=== PATIENT | female | born 1995 | race Caucasian/White ===

== ENCOUNTER 2017-04-04 20:10 | Emergency (ER) | payer OTHER ==
[~2017-04-04] VITALS: Ht 162.6 cm; Wt 49.9 kg
[2017-04-04 20:28] VITALS: BP 120/64
[2017-04-04] MEDS ORDERED: PRED20TA PO (20:47)
--- NOTE | 2017-04-04 20:47 | PHYS DOC ---
Past Medical History Past Medical History: Anxiety, Bipolar, Depression, Other Additional Past Medical Histor: born premature Past Surgical History: Appendectomy, Cholecystectomy, , Other Additional Past Surgical Histo: eye surgery Alcohol Use: None Drug Use: Marijuana Adult General Chief Complaint Chief Complaint: LOWER EXT PAIN [facility] HPI Patient is a 21 year old female presents emergency department stating that she has having left heel and foot pain. She states that she had injured her leg approximately 8 years ago and was seen at . She states that they told once the swelling goes down that everything she did look okay and she should be able to walk alright. Patient states within the last 3 days she's been having increased he'll pain and discomfort. She states that she has increased pain that goes up into her toes. She states that pain increases more after she's been on her feet for quite some time. Patient states that she has numbness in the fifth toe. She does have good cap refill less than 2 seconds. Pedal pulses 2 +. Patient states that she has not taken anything for the pain and discomfort. Review of Systems Review of Systems Constitutional: Denies fever or chills [] Eyes: Denies change in visual acuity, redness, or eye pain [] HENT: Denies nasal congestion or sore throat [] Respiratory: Denies cough or shortness of breath [] Cardiovascular: No additional information not addressed in HPI [] GI: Denies abdominal pain, nausea, vomiting, bloody stools or diarrhea [] : Denies dysuria or hematuria [] Musculoskeletal: Denies back pain or joint pain [] Integument: Denies rash or skin lesions [] Neurologic: Denies headache, focal weakness or sensory changes [] Endocrine: Denies polyuria or polydipsia [] Allergies Allergies Allergies Coded Allergies Type Severity Reaction Last Updated Verified ibuprofen Allergy Intermediate swelling 02/26/16 Yes aspirin Allergy Unknown swelling 02/26/16 Yes Physical Exam Physical Exam Constitutional: Well developed, well nourished, no acute distress, non-toxic appearance. [] HENT: Normocephalic, atraumatic, bilateral external ears normal, oropharynx moist, no oral exudates, nose normal. [] Eyes: PERRLA, EOMI, conjunctiva normal, no discharge. [] Neck: Normal range of motion, no tenderness, supple, no stridor. [] Cardiovascular:Heart rate regular rhythm, no murmur [] Lungs & Thorax: Bilateral breath sounds clear to auscultation []] Skin: Warm, dry, no erythema, no rash. [] Back: No tenderness Extremities: Left heel tenderness, and tenderness noted in the arch of the left foot. No cyanosis, no clubbing, ROM intact, no edema. Pedal pulses 2+ cap refill brisk less than 2 seconds. Patient with good sensation to the toes. Patient with increase pain noted along the plantar fascia redness area. Using no discoloration noted. Neurologic: Alert and oriented X 3, normal motor function, normal sensory function, no focal deficits noted. [] Psychologic: Affect normal, judgement normal, mood normal. [] Current Patient Data Vital Signs Vital Signs Date Time Temp Pulse Resp B/P (MAP) Pulse Ox O2 Delivery O2 Flow Rate FiO2 04/04/17 20:28 98.6 92 16 100 Room Air 98.6 EKG EKG [] Radiology/Procedures Radiology/Procedures [] Course & Med Decision Making Course & Med Decision Making Pertinent Labs and Imaging studies reviewed. (See chart for details) Patient denies any history of trauma at this current time. She denies any injuries to the foot area. Spoke with patient in regards to plantar fasciitis. We'll put providing her with prednisone to help with inflammation as she is allergic to ibuprofen and aspirin. Patient was also encouraged to use stretching exercises to help stretch the plantar fasciitis area out also recommended good supportive shoes. Patient will be provided with orthopedic name and number to follow up with. Patient was provided with signs and symptoms [] Dragon Disclaimer Dragon Disclaimer This electronic medical record was generated, in whole or in part, using a voice recognition dictation system. Departure Departure Impression: Primary Impression: Foot pain, left Disposition: 01 HOME, SELF-CARE Condition: STABLE Referrals: NO PCP (PCP) DAVID GUALLPA MD Patient Instructions: Plantar Fasciitis Additional Instructions: Activity as tolerated. Medication as prescribed. Ice packs on 20 minutes off 20 minutes several times a day. Elevation as much as possible. Follow-up with orthopedic in the next week. Return back to emergency prior signs symptoms of become worse. Scripts Prednisone (PREDNISONE) 20 Mg Tablet 40 MG PO DAILY, #14 TAB Prov: TYLER JACKSON APRN 04/04/17 TYLER JACKSON APRN April 04, 2017 20:47
== END 2017-04-04 20:52 | disposition home or self-care (01) ==
LOC: ER 20:10
DX: M79.672 Pain in left foot (principal); M79.89 Other specified soft tissue disorders; F41.9 Anxiety disorder, unspecified; F31.9 Bipolar disorder, unspecified; F12.10 Cannabis abuse, uncomplicated; Z90.49 Acquired absence of other specified parts of digestive tract; Z88.6 Allergy status to analgesic agent; Z88.8 Allergy status to other drugs, medicaments and biological substances
CPT/HCPCS: 99283

== ENCOUNTER 2018-06-16 17:56 | Emergency (ER) | payer OTHER ==
[2018-06-16 18:11] LABS: URINE HCG POC HCG NEGATIVE (Negative)
[2018-06-16 18:13] LABS: BILIRUBIN,URINE NEGATIVE (NEG); CLARITY,URINE TURBID; COLOR,URINE YELLOW; GLUCOSE,URINE NEGATIVE (NEG); NITRITE,URINE NEGATIVE (NEG); PH,URINE 7.5; PROTEIN,URINE NEGATIVE (NEG-TRACE)
[2018-06-16 18:25] LABS: RBC,URINE 0 /HPF (0-2)
[2018-06-16 18:26] LABS: AMORPHOUS SEDIMENT,UR PRESENT /HPF; BACTERIA,URINE 0 /HPF (0-FEW); SQUAMOUS EPITHELIAL CELL,UR FEW /LPF; WBC,URINE 0 /HPF (0-4)
[2018-06-16] MEDS: IV NORMAL SALINE 1000ML BAG 1,000 ML IV (18:30)
[2018-06-16 18:36] LABS: ADD MAN DIFF? NO
[2018-06-16 18:42] LABS: BASO % 1 % (0-3); EOS # 0.1 x10^3/uL (0.0-0.7); EOS % 1 % (0-3); HEMATOCRIT 47.4 % (36.0-47.0); HEMOGLOBIN 15.8 g/dL (12.0-15.5); LYMPH # 1.7 x10^3/uL (1.0-4.8); LYMPH % 24 % (24-48); MEAN CORPUSCULAR HEMOGLOBIN 32 pg (25-35); MEAN CORPUSCULAR HGB CONC 33 g/dL (31-37); MEAN CORPUSCULAR VOLUME 96 fL (79-100); MONO # 0.8 x10^3/uL (0.0-1.1); MONO % 11 % (0-9); NEUT # 4.7 x10^3uL (1.8-7.7); NEUT % 64 % (31-73); PLATELET COUNT 251 x10^3/uL (140-400); RED BLOOD COUNT 4.92 x10^6/uL (3.50-5.40); RED CELL DISTRIBUTION WIDTH 13.2 % (11.5-14.5); WHITE BLOOD COUNT 7.3 x10^3/uL (4.0-11.0)
[2018-06-16 18:46] LABS: ANION GAP 10 (6-14); BLOOD UREA NITROGEN 13 mg/dL (7-20); CARBON DIOXIDE 27 mmol/L (21-32); CHLORIDE 105 mmol/L (98-107); CREATININE 0.8 mg/dL (0.6-1.0); GFR 89.7; GLUCOSE 104 mg/dL (70-99); POTASSIUM 3.9 mmol/L (3.5-5.1); SODIUM 142 mmol/L (136-145)
[2018-06-16 19:01] LABS: THYROID STIM HORMONE (TSH) 1.006 uIU/mL (0.358-3.74)
[2018-06-16] MEDS: PROCHLORPERAZINE 10 MG/2 ML VIAL. IV (20:32)
[2018-06-16] MEDS: diphenhydrAMINE 50 MG/ML VIAL IVP (20:33)
== END 2018-06-16 21:00 | disposition home or self-care (01) ==
LOC: ER 17:56
DX: S06.9X9A Unspecified intracranial injury with loss of consciousness of unspecified duration, initial encounter (principal); R11.0 Nausea; F31.9 Bipolar disorder, unspecified; Z88.6 Allergy status to analgesic agent; Z88.8 Allergy status to other drugs, medicaments and biological substances; W18.09XA Striking against other object with subsequent fall, initial encounter; Y93.89 Activity, other specified; Y99.8 Other external cause status; Y92.89 Other specified places as the place of occurrence of the external cause
CPT/HCPCS: 36415; 70450; 80048; 81001; 81025; 84443; 85025; 93005; 96361; 96374; 96375; 99285-25; J0780; J1200; J7030